=== PATIENT | female | born 1950 | race American Indian/Alaskan Native ===

== ENCOUNTER 2017-01-18 13:43 | Emergency (ER) | payer SELFPAY ==
--- NOTE | 2017-01-18 17:39 | XRay Report ---
FINAL REPORT EXAM: XR KNEE 3V RT HISTORY: fall TECHNIQUE: Right knee three views 3 images PRIORS: None. FINDINGS: Bone mineralization appears within normal limits. No acute fracture or subluxation is identified. Traction enthesophyte is seen arising from the proximal patella. No gross abnormality is seen in the soft tissues. No joint effusion is seen. IMPRESSION: 1. No acute osseous abnormality is identified.
--- NOTE | 2017-01-18 17:41 | XRay Report ---
FINAL REPORT EXAM: XR ELBOW 3 LT HISTORY: fall TECHNIQUE: Left elbow three views 3 images PRIORS: None. FINDINGS: Bone mineralization appears within normal limits. No acute fracture or subluxation is identified. Traction enthesophyte is seen arising from the proximal ulna. No gross abnormality is seen in the soft tissues. IMPRESSION: 1. No acute fracture is identified.If symptoms persist, consider repeat study in 10-14 days to assess for a currently radiographically occult fracture.
[2017-01-18] MEDS ORDERED: BOOSTRIX IM ONE (18:59)
--- NOTE | 2017-01-18 19:12 | Emergency Department Report ---
ED Fall HPI - General Chief Complaint: Fall Stated Complaint: R KNEE INJURY FROM FALL Time Seen by Provider: 01/18/17 18:44 Source: patient Mode of arrival: Ambulatory Limitations: Other (pt drowsy, poor historian ) - History of Present Illness Initial Comments: PT states she fell at home on Thursday. PT states she was walking outside and her shoes did not have traction. PT states that she slipped and her R knee bent backwards. PT states that she fell backwards and hit her head. PT states she passed out for a few seconds. PT states she hurt her R knee and L elbow. PT states she has chronic back pain from spinal stenosis and DDD. PT denies b/b incontinence. PT states she has not had her ambien to help her sleep and she was tossing and turning this am and she feel out of bed. PT states her family member helped get her up right away. PT states she does not have any of her pain medication. 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 ) Symptoms Prior to Fall: none Location: head, back Location - Extremities: Left: Elbow, Right: Knee Severity scale (0 -10): 10 Context: tripped/slipped Associated Symptoms: headache. denies: numbness, weakness, chest paint, shortness of breath, unable to walk, lightheaded - Related Data Home Medications Medication Instructions Recorded Confirmed Last Taken Carvedilol [Coreg] 25 mg PO BID 04/08/14 07/08/16 07/06/16 21:00 25 mg Lisinopril [Zestril TAB] 10 mg PO QDAY 04/08/14 07/08/16 07/07/16 21:00 10mg cloNIDine [Catapres] 0.2 mg PO QHS 04/08/14 07/08/16 07/07/16 21:00 0.2mg Zolpidem [Ambien] 10 mg PO QHS 05/06/16 07/08/16 07/07/16 21:00 Previous Rx's Medication Instructions Recorded Last Taken Type AtorvaSTATin [Lipitor] 20 mg PO QHS #30 tablet 05/08/16 07/06/16 21:00 Rx Ibuprofen [Motrin] 600 mg PO Q8H PRN #15 tablet 01/18/17 Unknown Rx Miscellaneous Medical Supply 1 each MC CONT #1 each 01/18/17 Unknown Rx [[place]] Nitrofurantoin Leake/M-Cryst 100 mg PO Q12HR #14 capsule 01/18/17 Unknown Rx [Macrobid CAP] methOCARBAMOL [Robaxin TAB] 500 mg PO Q6H PRN #15 tablet 01/18/17 Unknown Rx Allergies Allergy/AdvReac Type Severity Reaction Status Date / Time amitriptyline Allergy Rash Verified 05/06/16 06:00 levofloxacin [From Levaquin] Allergy Rash Verified 05/06/16 05:58 tramadol HCl [From Ultram] Allergy heart race Verified 12/26/15 09:52 ED Review of Systems ROS: Stated complaint: R KNEE INJURY FROM FALL Other details as noted in HPI Comment: All other systems reviewed and negative Constitutional: denies: fever, weakness Cardiovascular: denies: chest pain Gastrointestinal: denies: abdominal pain, nausea, vomiting Musculoskeletal: as per HPI, back pain Skin: other (abrasions to L elbow and R knee ) Neurological: other (loc after fall on Thursday ) ED Past Medical Hx - Past Medical History Previous Medical History?: Yes Hx Hypertension: Yes Hx CVA: No Hx Heart Attack/AMI: No Hx Congestive Heart Failure: No Hx Diabetes: No Hx Deep Vein Thrombosis: No Hx Pulmonary Embolism: No Hx GERD: No Hx Liver Disease: No Hx Renal Disease: No Hx Sickle Cell Disease: No Hx Arthritis: No Hx Headaches / Migraines: No Hx Seizures: No Hx Kidney Stones: No Hx Psychiatric Treatment: Yes (depression) Hx Asthma: No Hx COPD: No Hx Tuberculosis: No Hx Dementia: No Hx HIV: No Additional medical history: stenosis of spine - Surgical History Past Surgical History?: Yes Hx Coronary Stent: No Hx Open Heart Surgery: No Hx Pacemaker: No Hx Internal Defibrillator: No Hx Cholecystectomy: No Hx Appendectomy: No Hx Breast Surgery: No Additional Surgical History: neck-bulging disc. back fusion - Social History Smoking Status: Never Smoker Substance Use Type: Alcohol - Medications Home Medications: Home Medications Medication Instructions Recorded Confirmed Last Taken Type Carvedilol [Coreg] 25 mg PO BID 04/08/14 07/08/16 07/06/16 21:00 History 25 mg Lisinopril [Zestril TAB] 10 mg PO QDAY 04/08/14 07/08/16 07/07/16 21:00 History 10mg cloNIDine [Catapres] 0.2 mg PO QHS 04/08/14 07/08/16 07/07/16 21:00 History 0.2mg Zolpidem [Ambien] 10 mg PO QHS 05/06/16 07/08/16 07/07/16 21:00 History AtorvaSTATin [Lipitor] 20 mg PO QHS #30 tablet 05/08/16 07/08/16 07/06/16 21:00 Rx Ibuprofen [Motrin] 600 mg PO Q8H PRN #15 tablet 01/18/17 Unknown Rx Miscellaneous Medical Supply 1 each MC CONT #1 each 01/18/17 Unknown Rx [[place]] Nitrofurantoin Leake/M-Cryst 100 mg PO Q12HR #14 capsule 01/18/17 Unknown Rx [Macrobid CAP] methOCARBAMOL [Robaxin TAB] 500 mg PO Q6H PRN #15 tablet 01/18/17 Unknown Rx ED Physical Exam - General Limitations: No Limitations General appearance: alert, appears intoxicated (of heavily medicated ) - Head Head exam: Present: atraumatic, normocephalic, normal inspection - Eye Eye exam: Present: normal appearance, EOMI (pt has difficulty following commands / instructions- able to move eyes on her own ). Absent: conjunctival injection , nystagmus - ENT ENT exam: Present: normal exam, normal orophraynx, mucous membranes moist, TM's normal bilaterally, normal external ear exam - Neck Neck exam: Present: normal inspection, full ROM. Absent: tenderness - Respiratory Respiratory exam: Present: normal lung sounds bilaterally. Absent: respiratory distress - Cardiovascular Cardiovascular Exam: Present: regular rate, normal rhythm - GI/Abdominal GI/Abdominal exam: Present: soft. Absent: tenderness - Expanded Upper Extremity Exam Left Shoulder Exam: Present: normal inspection, full ROM Elbow exam: Present: tenderness, abrasion. Absent: dislocation, erythema - Expanded Lower Extremity Exam Right Knee exam: Present: full ROM, tenderness, abrasion Ankle exam: Present: normal inspection, full ROM. Absent: tenderness Neuro vascular tendon exam: Present: no vascular compromise Gait: Positive: observed and normal (after pt became more alert, gait evaluated ) - Back Exam Back exam: Present: normal inspection, full ROM, tenderness (R lower lumbar paraspinal tenderness ), paraspinal tenderness. Absent: CVA tenderness (R), CVA tenderness (L), vertebral tenderness - Neurological Exam Neurological exam: Present: alert, abnormal gait (due to R knee pain. ), other (slurred speech ) - Expanded Neurological Exam Expanded Patient oriented to: Present: person, place, time Cranial nerves: Tongue Deviation: Normal, Nystagmus: Normal Best Eye Response (Newborn): (4) open spontaneously Best Motor Response (Jah): (5) localizes to pain (pt very droswy, has difficulty following commands.) Best Verbal Response (Jah): (4) confused conversation Jah Total: 13 - Psychiatric Psychiatric exam: Present: normal affect, normal mood - Skin Skin exam: Present: warm, dry, abrasion. Absent: ecchymosis ED Course Vital Signs 01/18/17 01/18/17 14:30 23:35 Temperature 98.7 F 98.6 F Pulse Rate 107 H 95 H Respiratory 16 20 Rate Blood Pressure 159/106 Blood Pressure 155/98 [Left] O2 Sat by Pulse 100 99 Oximetry - Reevaluation(s) Reevaluation #1: 01/18/17 23:14 PT is much more awake and alert at this time. PT requests that family member at bedside not be told "what is in {her} urine" PT aware she will need to follow up with pcp for refills of narcotic pain medication and her ambien. PT verbalizes understanding. Reevaluation #2: 01/18/17 23:23 PT aware of lab results. PT states she has had intermittent dysuria and hematuria. PT aware culture pending, will treat for uti empirically - Pulse Oximetry Interpretation Digit-Finger Initial Pulse Oximetry Readin Actions Taken: none ED Medical Decision Making - Lab Data Result diagrams: 01/18/17 19:24 01/18/17 19:24 - Radiology Data CT head - NAP - Differential Diagnosis etoh use, drug abuse, narcotic use, fracture, contusion, abrasion Critical Care Time: No Critical care attestation.: If time is entered above; I have spent that time in minutes in the direct care of this critically ill patient, excluding procedure time. ED Disposition Clinical Impression: Closed head injury with brief loss of consciousness, Hematuria Fall Qualifiers: Encounter type: initial encounter Qualified Code(s): W19.XXXA - Unspecified fall, initial encounter Contusion of right knee Qualifiers: Encounter type: initial encounter Qualified Code(s): S80.01XA - Contusion of right knee, initial encounter Abrasion of left elbow, initial encounter Qualifiers: Encounter type: initial encounter Qualified Code(s): S50.312A - Abrasion of left elbow, initial encounter Disposition: DISCHARGED TO HOME OR SELFCARE Is pt being admited?: No Does the pt Need Aspirin: No Condition: Stable Instructions: Fall Prevention for Older Adults (ED), Acute Hematuria (ED), Elbow Sprain (ED), Abrasion (ED), Knee Pain (ED), Fall Prevention (ED) Additional Instructions: Follow up with your PCP for your sleeping and pain medication Prescriptions: Ibuprofen [Motrin] 600 mg PO Q8H PRN #15 tablet PRN Reason: Pain methOCARBAMOL [Robaxin TAB] 500 mg PO Q6H PRN #15 tablet PRN Reason: Muscle Spasm Miscellaneous Medical Supply [[place]] 1 each MC CONT #1 each Nitrofurantoin Leake/M-Cryst [Macrobid CAP] 100 mg PO Q12HR #14 capsule Referrals: PRIMARY CARE, [Primary Care Provider] - 3-5 Days Time of Disposition: 23:25
--- NOTE | 2017-01-18 19:37 | Cat Scan Report ---
FINAL REPORT EXAM: CT HEAD/BRAIN WO CON HISTORY: fall, chi, drowsy TECHNIQUE: Noncontrast serial axial images from skull base to vertex PRIORS: CT scan of the head from 05/05/2016 FINDINGS: There is no mass effect or midline shift. There are no abnormal intra or extra-axial fluid collections. Cortical sulci and lateral ventricles are within normal limits for size and configuration. Basilar cisterns are patent. No acute intracranial hemorrhage is identified. Visualized paranasal sinuses and mastoid air cells are well aerated. No acute osseous abnormality is identified. IMPRESSION: 1. No acute intracranial hemorrhage is identified.
[2017-01-18 19:48] LABS: Basophils % (Auto) 0.6 % (0.0-1.8); Eosinophils % (Auto) 1.4 % (0.0-4.3); Hematocrit 40.9 % (30.3-42.9); Hemoglobin 13.5 gm/dl (10.1-14.3); Mean Corpuscular HGB Conc 33 % (30-34); Mean Corpuscular Hemoglobin 30 pg (28-32); Mean Corpuscular Volume 92 fl (79-97); Platelet Count 242 K/mm3 (140-440); Red Blood Count 4.43 M/mm3 (3.65-5.03); Red Cell Distribution Width 14.7 % (13.2-15.2); White Blood Count 7.5 K/mm3 (4.5-11.0)
[2017-01-18 19:59] LABS: INR 0.98 (0.87-1.13)
[2017-01-18 20:00] LABS: Partial Thromboplastin Time 28.2 Sec. (24.2-36.6)
[2017-01-18 20:05] LABS: Alanine Aminotransferase 23 units/L (7-56); Albumin 4.3 g/dL (3.9-5); Albumin/Globulin Ratio 1.3 %; Anion Gap 20 mmol/L; BUN/Creatinine Ratio 13.75; Blood Urea Nitrogen 11 mg/dL (7-17); Calcium 9.7 mg/dL (8.4-10.2); Carbon Dioxide 24 mmol/L (22-30); Chloride 100.6 mmol/L (98-107); Glucose 98 mg/dL (65-100); Potassium 4.1 mmol/L (3.6-5.0); Sodium 140 mmol/L (137-145); Total Protein 7.7 g/dL (6.3-8.2)
[2017-01-18 21:15] LABS: Alkaline Phosphatase 208 units/L (35-129)
[2017-01-18 21:41] LABS: Urine Drugs of Abuse Note Disclamer
[2017-01-18 22:00] LABS: Bilirubin,Urine NEG (Negative); Blood,Urine SM (Negative); Ketones,Urine NEG (Negative); Leukocyte Esterase,Urine NEG (Negative); Mucus,Urine FEW /HPF; Nitrite,Urine NEG (Negative); Urobilinogen,Urine < 2.0 mg/dL (<2.0); WBC,Urine < 1.0 /HPF (0.0-6.0)
[2017-01-18 23:36] VITALS: BP 155/98
== END 2017-01-18 23:41 | disposition home or self-care (01) ==
LOC: ED 13:43
DX: S80.01XA Contusion of right knee, initial encounter (principal); S50.312A Abrasion of left elbow, initial encounter; S06.9X9A Unspecified intracranial injury with loss of consciousness of unspecified duration, initial encounter; R31.9 Hematuria, unspecified; I10 Essential (primary) hypertension; Z98.890 Other specified postprocedural states; Z88.1 Allergy status to other antibiotic agents; Z88.6 Allergy status to analgesic agent; Z88.8 Allergy status to other drugs, medicaments and biological substances; W01.10XA Fall on same level from slipping, tripping and stumbling with subsequent striking against unspecified object, initial encounter; Y93.01 Activity, walking, marching and hiking; Y99.8 Other external cause status; Y92.098 Other place in other non-institutional residence as the place of occurrence of the external cause
CPT/HCPCS: 36415; 70450; 73080; 73562; 80053; 80307; 81001; 85025; 85610; 85730; 87086; 90471; 90715; 99284; G0480; 80320

== ENCOUNTER 2017-06-03 11:56 | Emergency (ER) | payer MEDICARE, OTHER ==
[2017-06-03 13:54] LABS: Basophils % (Auto) 0.5 % (0.0-1.8); Eosinophils % (Auto) 0.1 % (0.0-4.3); Hematocrit 38.9 % (30.3-42.9); Hemoglobin 12.9 gm/dl (10.1-14.3); Mean Corpuscular HGB Conc 33 % (30-34); Mean Corpuscular Hemoglobin 31 pg (28-32); Mean Corpuscular Volume 92 fl (79-97); Platelet Count 305 K/mm3 (140-440); Red Blood Count 4.22 M/mm3 (3.65-5.03); Red Cell Distribution Width 14.9 % (13.2-15.2); White Blood Count 13.7 K/mm3 (4.5-11.0)
[2017-06-03 14:09] LABS: Anion Gap 21 mmol/L; BUN/Creatinine Ratio 24.28; Blood Urea Nitrogen 17 mg/dL (7-17); Calcium 9.4 mg/dL (8.4-10.2); Carbon Dioxide 20 mmol/L (22-30); Chloride 100.8 mmol/L (98-107); Glucose 104 mg/dL (65-100); Potassium 3.7 mmol/L (3.6-5.0); Sodium 138 mmol/L (137-145)
[2017-06-03 17:03] LABS: Bacteria,Urine 1+ /HPF (Negative); Bilirubin,Urine NEG (Negative); Blood,Urine SM (Negative); Ketones,Urine NEG (Negative); Leukocyte Esterase,Urine SM (Negative); Nitrite,Urine NEG (Negative); Urobilinogen,Urine < 2.0 mg/dL (<2.0)
[2017-06-03] MEDS ORDERED: ZOFRAN ODT PO ONE (23:55)
[2017-06-03] MEDS ORDERED: TORADOL IV ONE (23:55)
[2017-06-03] MEDS ORDERED: TYLENOL #3 PO ONE (23:55)
--- NOTE | 2017-06-03 23:56 | Emergency Department Report ---
ED General Adult HPI - General Chief complaint: Abdominal Pain Stated complaint: COLD,FLU LIKE SYMPTOMS Time Seen by Provider: 06/03/17 23:43 Source: patient, family, RN notes reviewed, old records reviewed Mode of arrival: Ambulatory Limitations: No Limitations - History of Present Illness Initial comments: This is a 66-year-old female, the patient is previously unknown to me. The patient's primary care doctor is Dr. Alhaji Luna. Patient has a past medical history of hypertension, depression, anxiety, spinal stenosis, "bulging disks." Patient also has a history of chronic pain, and chronic pain dependence. She does not have recurrent pain specialist. Patient presents to the ER complaining of cough, congestion, nasal congestion, mucus. She reports positive sick contacts and a granddaughter. She reports that she denies headache, chest pain, shortness of breath, abdominal pain, irritative/obstructive urinary symptoms. Patient reports that she was waiting in the ER "for too long ", and that her chronic back pain is acting up, and she is developed mild nausea and vomiting. Patient reports that this is consistent when her "back flares up." -: Gradual Location: mouth, back Severity scale (0 -10): 10 Quality: aching Consistency: constant Improves with: medication Worsens with: movement Associated Symptoms: cough, loss of appetite, nausea/vomiting, weakness - Related Data Home Medications Medication Instructions Recorded Confirmed Last Taken Carvedilol [Coreg] 25 mg PO BID 04/08/14 07/08/16 07/06/16 21:00 25 mg Lisinopril [Zestril TAB] 10 mg PO QDAY 04/08/14 07/08/16 07/07/16 21:00 10mg cloNIDine [Catapres] 0.2 mg PO QHS 04/08/14 07/08/16 07/07/16 21:00 0.2mg Zolpidem [Ambien] 10 mg PO QHS 05/06/16 07/08/16 07/07/16 21:00 Previous Rx's Medication Instructions Recorded Last Taken Type AtorvaSTATin [Lipitor] 20 mg PO QHS #30 tablet 05/08/16 07/06/16 21:00 Rx Ibuprofen [Motrin] 600 mg PO Q8H PRN #15 tablet 01/18/17 Unknown Rx Miscellaneous Medical Supply 1 each MC CONT #1 each 01/18/17 Unknown Rx [[place]] Nitrofurantoin [place]/M-Cryst 100 mg PO Q12HR #14 capsule 01/18/17 Unknown Rx [Macrobid CAP] methOCARBAMOL [Robaxin TAB] 500 mg PO Q6H PRN #15 tablet 01/18/17 Unknown Rx Acetaminophen [Tylenol Arthritis] 650 mg PO Q6HR PRN #30 tablet.er 06/04/17 Unknown Rx Albuterol Sulfate [Proair 90 mcg IH Q4HR PRN #2 aer.pow.ba 06/04/17 Unknown Rx Respiclick] Benzonatate [Tessalon Perles] 100 mg PO Q8HR PRN #30 capsule 06/04/17 Unknown Rx Fluticasone [Flonase] 1 spray NS QDAY #1 bottle 06/04/17 Unknown Rx Ibuprofen [Motrin] 600 mg PO Q8H PRN #30 tablet 06/04/17 Unknown Rx Ondansetron [Zofran Odt] 4 mg PO QID PRN #20 tab.rapdis 06/04/17 Unknown Rx Allergies Allergy/AdvReac Type Severity Reaction Status Date / Time amitriptyline Allergy Rash Verified 05/06/16 06:00 levofloxacin [From Levaquin] Allergy Rash Verified 05/06/16 05:58 tramadol HCl [From Ultram] Allergy heart race Verified 12/26/15 09:52 ED Review of Systems ROS: Stated complaint: COLD,FLU LIKE SYMPTOMS Other details as noted in HPI Constitutional: malaise, weakness ENT: congestion Respiratory: cough Cardiovascular: denies: chest pain Gastrointestinal: nausea Genitourinary: denies: dysuria Musculoskeletal: back pain, arthralgia, myalgia Neurological: weakness Psychiatric: anxiety ED Past Medical Hx - Past Medical History Hx Hypertension: Yes Hx CVA: No Hx Heart Attack/AMI: No Hx Congestive Heart Failure: No Hx Diabetes: No Hx Deep Vein Thrombosis: No Hx Pulmonary Embolism: No Hx GERD: No Hx Liver Disease: No Hx Renal Disease: No Hx Sickle Cell Disease: No Hx Arthritis: No Hx Headaches / Migraines: No Hx Seizures: No Hx Kidney Stones: No Hx Psychiatric Treatment: Yes (depression) Hx Asthma: No Hx COPD: No Hx Tuberculosis: No Hx Dementia: No Hx HIV: No Additional medical history: stenosis of spine - Surgical History Hx Coronary Stent: No Hx Open Heart Surgery: No Hx Pacemaker: No Hx Internal Defibrillator: No Hx Cholecystectomy: No Hx Appendectomy: No Hx Breast Surgery: No Additional Surgical History: neck-bulging disc. back fusion - Social History Smoking Status: Never Smoker Substance Use Type: Alcohol - Medications Home Medications: Home Medications Medication Instructions Recorded Confirmed Last Taken Type Carvedilol [Coreg] 25 mg PO BID 04/08/14 07/08/16 07/06/16 21:00 History 25 mg Lisinopril [Zestril TAB] 10 mg PO QDAY 04/08/14 07/08/16 07/07/16 21:00 History 10mg cloNIDine [Catapres] 0.2 mg PO QHS 04/08/14 07/08/16 07/07/16 21:00 History 0.2mg Zolpidem [Ambien] 10 mg PO QHS 05/06/16 07/08/16 07/07/16 21:00 History AtorvaSTATin [Lipitor] 20 mg PO QHS #30 tablet 05/08/16 07/08/16 07/06/16 21:00 Rx Ibuprofen [Motrin] 600 mg PO Q8H PRN #15 tablet 01/18/17 Unknown Rx Miscellaneous Medical Supply 1 each MC CONT #1 each 01/18/17 Unknown Rx [[place]] Nitrofurantoin Cowley/M-Cryst 100 mg PO Q12HR #14 capsule 01/18/17 Unknown Rx [Macrobid CAP] methOCARBAMOL [Robaxin TAB] 500 mg PO Q6H PRN #15 tablet 01/18/17 Unknown Rx Acetaminophen [Tylenol Arthritis] 650 mg PO Q6HR PRN #30 tablet.er 06/04/17 Unknown Rx Albuterol Sulfate [Proair 90 mcg IH Q4HR PRN #2 aer.pow.ba 06/04/17 Unknown Rx Respiclick] Benzonatate [Tessalon Perles] 100 mg PO Q8HR PRN #30 capsule 06/04/17 Unknown Rx Fluticasone [Flonase] 1 spray NS QDAY #1 bottle 06/04/17 Unknown Rx Ibuprofen [Motrin] 600 mg PO Q8H PRN #30 tablet 06/04/17 Unknown Rx Ondansetron [Zofran Odt] 4 mg PO QID PRN #20 tab.rapdis 06/04/17 Unknown Rx ED Physical Exam - General Limitations: No Limitations General appearance: alert, in no apparent distress - Head Head exam: Present: atraumatic, normocephalic - Eye Eye exam: Present: normal appearance, PERRL, EOMI. Absent: nystagmus - ENT ENT exam: Present: normal exam, mucous membranes moist, TM's normal bilaterally , normal external ear exam - Neck Neck exam: Present: normal inspection, full ROM. Absent: tenderness, meningismus - Respiratory Respiratory exam: Present: normal lung sounds bilaterally. Absent: respiratory distress, wheezes, rales, rhonchi, stridor, chest wall tenderness, accessory muscle use, decreased breath sounds, prolonged expiratory - Cardiovascular Cardiovascular Exam: Present: regular rate, normal rhythm, normal heart sounds. Absent: bradycardia, tachycardia, irregular rhythm, systolic murmur, diastolic murmur, rubs, gallop - GI/Abdominal GI/Abdominal exam: Present: soft, normal bowel sounds. Absent: distended, tenderness, guarding, rebound, rigid, pulsatile mass - Extremities Exam Extremities exam: Present: normal inspection, full ROM, normal capillary refill. Absent: pedal edema, joint swelling, calf tenderness - Back Exam Back exam: Present: normal inspection, full ROM, paraspinal tenderness. Absent : tenderness, CVA tenderness (R), vertebral tenderness - Neurological Exam Neurological exam: Present: alert, oriented X3, other (Extraocular movements intact. Tongue midline. No facial droop. Facial sensation intact to light touch in the V1, V2, V3 distribution bilaterally. 5 and 5 strength in 4 extremities.. Sensation is intact to light touch in 4 extremities.). Absent: motor sensory deficit - Psychiatric Psychiatric exam: Present: normal affect, normal mood - Skin Skin exam: Present: warm, dry, intact, normal color. Absent: rash ED Course Vital Signs 06/03/17 06/03/17 06/04/17 13:21 23:20 00:59 Temperature 98.8 F 98.6 F 98.0 F Pulse Rate 107 H 105 H 93 H Respiratory 16 16 16 Rate Blood Pressure 145/100 Blood Pressure 145/102 150/93 [Left] O2 Sat by Pulse 100 99 99 Oximetry ED Medical Decision Making - Lab Data Result diagrams: 06/03/17 13:38 06/03/17 13:38 - Radiology Data Radiology results: image reviewed interpreted by me: X-ray the chest is negative - Medical Decision Making Differential diagnosis: Pneumonia, bronchitis, viral syndrome, chronic pain Assessment and plan: 66-year-old female with probable viral syndrome. She is afebrile, with reassuring vital signs, tachycardia has resolved, she is able to tolerate liquid feeds. History and physical did not support the diagnosis of epidural compression syndrome, abdomen is soft and benign, with no rebound, guarding or peritoneal signs, she is able to tolerate liquid feeds, and feels improved with the pain medication. She will be discharged with instructions to follow up with primary care and pain specialist, return precautions are reviewed. Critical care attestation.: If time is entered above; I have spent that time in minutes in the direct care of this critically ill patient, excluding procedure time. ED Disposition Clinical Impression: Viral syndrome, Chronic back pain Disposition: - TO HOME OR SELFCARE Is pt being admited?: No Does the pt Need Aspirin: No Condition: Stable Instructions: Viral Syndrome (ED) Additional Instructions: Take the cough medication, breathing medication, nausea medication, pain medication as needed/directed. Follow-up with primary care doctor or pain specialist within the next month. Return to the ER right away with fevers, chills, lethargy, irritability, projectile vomiting, change in mental status, inability to tolerate liquid feeds, confusion. Prescriptions: Acetaminophen [Tylenol Arthritis] 650 mg PO Q6HR PRN #30 tablet.er PRN Reason: Pain Albuterol Sulfate [Proair Respiclick] 90 mcg IH Q4HR PRN #2 aer.pow.ba PRN Reason: Wheezing Benzonatate [Tessalon Perles] 100 mg PO Q8HR PRN #30 capsule PRN Reason: Cough Fluticasone [Flonase] 1 spray NS QDAY #1 bottle Ibuprofen [Motrin] 600 mg PO Q8H PRN #30 tablet PRN Reason: Pain Ondansetron [Zofran Odt] 4 mg PO QID PRN #20 tab.rapdis PRN Reason: Nausea Referrals: MARK LUNA MD [Primary Care Provider] - 3-5 Days DEDE TANG MD [Staff Physician] - 3-5 Days
[2017-06-04 01:03] VITALS: BP 150/93
--- NOTE | 2017-06-04 07:47 | XRay Report ---
ROUTINE CHEST, TWO VIEWS: HISTORY: Cough. The trachea, heart, mediastinal contour, lung christensen and bony thorax are unremarkable. IMPRESSION: Unremarkable chest x-ray.
== END 2017-06-04 02:00 | disposition home or self-care (01) ==
LOC: ED 11:56
DX: B34.9 Viral infection, unspecified (principal); M54.9 Dorsalgia, unspecified; G89.29 Other chronic pain; I10 Essential (primary) hypertension; Z88.1 Allergy status to other antibiotic agents; Z88.5 Allergy status to narcotic agent; Z88.8 Allergy status to other drugs, medicaments and biological substances
CPT/HCPCS: 36415; 71020; 80048; 81001; 85025; 96374; 99284; J1885; Q0162

== ENCOUNTER 2017-06-27 13:00 | Emergency (ER) | payer MEDICARE ==
--- NOTE | 2017-06-27 14:58 | Emergency Department Report ---
HPI - General Chief Complaint: Back Pain/Injury Time Seen by Provider: 06/27/17 14:29 - HPI HPI: Room 2 The pt is a 66 y/o F p/w a cc of Right back/RLE pain. The pt has a h/o Lumbar radiculopathy suffering from R foot numbness for 5-6 years. The pt states for the past 2-3 weeks she has had worsening pain. ^ days ago the pt had an episode of urinary incontinence and it repeated 3 days ago. The pt went to a clinic today and was sent to the ED for evaluation for possible cauda equina syndrome. ED Past Medical Hx - Past Medical History Previous Medical History?: Yes Hx Hypertension: Yes Hx Psychiatric Treatment: Yes (depression) Additional medical history: stenosis of spine, back pain, neck pain - Surgical History Past Surgical History?: Yes Additional Surgical History: neck-bulging disc. back fusion, hysterectomy - Family History Family history: no significant - Social History Smoking Status: Never Smoker Substance Use Type: Alcohol, Prescribed - Medications Home Medications: Home Medications Medication Instructions Recorded Confirmed Last Taken Type Carvedilol [Coreg] 25 mg PO BID 04/08/14 07/08/16 07/06/16 21:00 History 25 mg Lisinopril [Zestril TAB] 10 mg PO QDAY 04/08/14 07/08/16 07/07/16 21:00 History 10mg cloNIDine [Catapres] 0.2 mg PO QHS 04/08/14 07/08/16 07/07/16 21:00 History 0.2mg Zolpidem [Ambien] 10 mg PO QHS 05/06/16 07/08/16 07/07/16 21:00 History AtorvaSTATin [Lipitor] 20 mg PO QHS #30 tablet 05/08/16 07/08/16 07/06/16 21:00 Rx Ibuprofen [Motrin] 600 mg PO Q8H PRN #15 tablet 01/18/17 Unknown Rx Medical Supply, Miscellaneous 1 each MC CONT #1 each 01/18/17 Unknown Rx [[place]] Nitrofurantoin [place]/M-Cryst 100 mg PO Q12HR #14 capsule 01/18/17 Unknown Rx [Macrobid CAP] methOCARBAMOL [Robaxin TAB] 500 mg PO Q6H PRN #15 tablet 01/18/17 Unknown Rx Acetaminophen [Tylenol Arthritis] 650 mg PO Q6HR PRN #30 tablet.er 06/04/17 Unknown Rx Albuterol Sulfate [Proair 90 mcg IH Q4HR PRN #2 aer.pow.ba 06/04/17 Unknown Rx Respiclick] Benzonatate [Tessalon Perles] 100 mg PO Q8HR PRN #30 capsule 06/04/17 Unknown Rx Fluticasone [Flonase] 1 spray NS QDAY #1 bottle 06/04/17 Unknown Rx Ibuprofen [Motrin] 600 mg PO Q8H PRN #30 tablet 06/04/17 Unknown Rx Ondansetron [Zofran Odt] 4 mg PO QID PRN #20 tab.rapdis 06/04/17 Unknown Rx HYDROcodone/APAP 5-325 [[place] 1 - 2 each PO Q6HR PRN #14 tablet 06/27/17 Unknown Rx 5/325] Ibuprofen [Motrin 800 MG tab] 800 mg PO Q8HR PRN #20 tablet 06/27/17 Unknown Rx ED Review of Systems ROS: Stated complaint: BACK PAIN/URINE INCONTINENCE Other details as noted in HPI Comment: All other systems reviewed and negative Constitutional: denies: chills, fever Eyes: denies: eye pain, eye discharge, vision change Respiratory: denies: cough, shortness of breath, wheezing Cardiovascular: denies: chest pain, palpitations Endocrine: no symptoms reported Gastrointestinal: denies: abdominal pain, nausea, diarrhea Genitourinary: denies: urgency, dysuria, discharge Musculoskeletal: back pain Skin: denies: rash, lesions Neurological: paresthesias, other (bladder incontinence) Psychiatric: denies: anxiety, depression Hematological/Lymphatic: denies: easy bleeding, easy bruising Physical Exam - Physical Exam Vital Signs: Vital Signs 06/27/17 13:07 Temperature 98 F Pulse Rate 81 Respiratory 20 Rate Blood Pressure 183/112 O2 Sat by Pulse 100 Oximetry Physical Exam: GENERAL: The patient is well-developed well-nourished female lying on stretcher not appearing to be in acute distress. [] HEENT: Normocephalic. Atraumatic. Extraocular motions are intact. Patient has moist mucous membranes. NECK: Supple. Trachea midline CHEST/LUNGS: Clear to auscultation. There is no respiratory distress noted. HEART/CARDIOVASCULAR: Regular. There is tachycardia. There is no gallop rub or murmur. ABDOMEN: Abdomen is soft, nontender. Patient has normal bowel sounds. There is no abdominal distention. SKIN: There is no rash. There is no diaphoresis. NEURO: The patient is awake, alert, and oriented. The patient is cooperative. sl decreased sensation R ankle MUSCULOSKELETAL: There is no evidence of acute injury. no axial TTP ED Course Vital Signs 06/27/17 13:07 Temperature 98 F Pulse Rate 81 Respiratory 20 Rate Blood Pressure 183/112 O2 Sat by Pulse 100 Oximetry - Reevaluation(s) Reevaluation #1: 06/27/17 18:04 Patient's post void residual = 0ml. Will discharge patient home with follow with primary neurosurgeon - Consultations Consultation #1: 06/27/17 17:04 [facility] transfer line called 06/27/17 17:25 Case discussed with neurosurgery and Dr. Chaparro- recommends checking a postvoid residual. States that it is very sensitive for detecting cauda equina syndrome. States that if the postvoid residual is normal (less than 200 mls) the patient may be discharged home to follow up in his clinic telephone #. If the postvoid residual is elevated recommends calling back for potential transfer. Does not recommend diminishing steroids at this time ED Medical Decision Making - Radiology Data Radiology results: report reviewed (MRI lumbar spine), image reviewed (MRI L Spine) MRI lumbar spine (read by radiologist) sees-significant lower lumbar degenerative disc disease with protrusion/extrusion at L3/L4, L4/L5 and to a lesser degree L5/S1. There is also significant facet osteoarthritis less than 7 mm left posterior disc extrusion at L4/L5. - Differential Diagnosis lumbar radiculopathy, spinal cord compression Critical care attestation.: If time is entered above; I have spent that time in minutes in the direct care of this critically ill patient, excluding procedure time. ED Disposition Clinical Impression: Back pain, Lumbar radiculopathy Disposition: TO HOME OR SELFCARE Is pt being admited?: No Does the pt Need Aspirin: No Instructions: Lumbar Radiculopathy (ED) Additional Instructions: Return to the emergency department immediately should you develop worsening symptoms, fever, inability to tolerate food or liquid or any other concerns. Prescriptions: HYDROcodone/APAP 5-325 [[place] 5/325] 1 - 2 each PO Q6HR PRN #14 tablet PRN Reason: Pain Ibuprofen [Motrin 800 MG tab] 800 mg PO Q8HR PRN #20 tablet PRN Reason: Pain Referrals: Dr. Chaparro, [facility] [Other] - 06/29/17 Time of Disposition: 18:08
--- NOTE | 2017-06-27 16:47 | Magnetic Resonance Report ---
FINAL REPORT EXAM: MR LUMBAR SPINE WO CON HISTORY: right foot numbness, urinary incontinence TECHNIQUE: Multiplanar multisequence noncontrast MR imaging of the lumbosacral spine was performed. Comparison: None FINDINGS: There is mild straightening of the normal lumbar lordosis. There is loss of vertebral body height at L5. There is disc desiccation most severe at L3/L4 and L4/L5 with disc protrusions at these locations. Conus terminates normally at L1. Axial images were performed from T12 to the proximal sacrum. At T12/L1, no acute pathology. At L1/L2, no acute pathology. At L2/L3, mild broad-based bulge and facet osteoarthritis compounded by left paravertebral disc causes borderline canal stenosis and mild left foraminal stenosis. At L3/4, broad-based protrusion and significant facet osteoarthritis cause both transverse and AP canal stenosis to less than 8 millimeters. There is bilateral foraminal stenosis, left greater than right. At L4/5, there is significant disc protrusion with facet osteoarthritis obliterating the left lateral recess and displacing the left exiting nerve root. The canal is significantly narrowed with AP diameter measuring less than 5 millimeters. At this level, there appears to be a 7 millimeter posterior osteophyte contributing to the canal stenosis. At L5/S1, there is broad-based bulge, ligamentum flavum hypertrophy and facet osteoarthritis causing canal stenosis to 7.5 millimeters. There is bilateral foraminal stenosis and impingement of the descending nerve roots. There is a left upper pole renal cortical exophytic cyst. IMPRESSION: Significant lower lumbar degenerative disc disease with protrusion/extrusion at L3/L4, L4/L5 and to a lesser degree L5/S1. There is also significant facet osteoarthritis with less likely 7 millimeter left posterior disc extrusion at L4/L5. Recommend contrasted exam for further characterization. The lower most segmented vertebral body appears to represent L4 but it is difficult to count based on the counting series provided and may represent a transitional vertebral body.
[2017-06-27] MEDS ORDERED: ZOFRAN IM ONE (18:03)
[2017-06-27] MEDS ORDERED: MORPHINE IM ONE (18:03)
[2017-06-27 18:57] VITALS: BP 151/101
== END 2017-06-27 18:57 | disposition home or self-care (01) ==
LOC: ED 13:00
DX: M54.16 Radiculopathy, lumbar region (principal); I10 Essential (primary) hypertension; R32 Unspecified urinary incontinence
CPT/HCPCS: 72148; 96372; 99283; J2270; J2405

== ENCOUNTER 2017-08-07 16:27 | Emergency (ER) | payer MEDICARE ==
--- NOTE | 2017-08-07 19:37 | Emergency Department Report ---
ED Back Pain/Injury HPI - General Chief Complaint: Back Pain/Injury Stated Complaint: BACK PAIN Time Seen by Provider: 08/07/17 19:20 Source: patient, family Limitations: No Limitations - History of Present Illness Initial Comments: Patient here reports that she has chronic back pain and out of her pain medication which she usually takes hydrocodone. She says she sees a neurosurgeon at [facility] and she is scheduled to have surgery next month. She said her back pain is 10 out of 10 but denies any radiation. She said this back pain is different from the back pain that she has chronically. She denies any urinary burning frequency or urgency. Denies any nausea or vomiting. Denies any fever or chills. Patient says she has spinal stenosis. Pain is located to the lateral lower back and feels achy and sharp. She says she did not take anything for pain because she doesn't have any more pain medication. Nothing makes it better and worse with moving around. MD Complaint: back pain Onset/Timin -: days(s) Similar Symptoms Previously: Yes (but patient reports that it is different from her usual back pain) Place: home Radiation: none Severity: severe Severity scale (0 -10): 10 Quality: sharp, aching Consistency: constant Improves With: none, walking Worsens With: movement Context: other (chronic back pain) Associated Symptoms: difficulty walking (this is usual for patient she and placed with a cane). denies: confusion, weakness, chest pain, numbness, cough, difficulty urinating, diaphoresis, incontinence, fever/chills, constipation, headaches, abdominal pain, loss of appetite, malaise, nausea/vomiting, rash, seizure, shortness of breath, syncope Treatments Prior to Arrival: other (none) - Related Data Home Medications Medication Instructions Recorded Confirmed Last Taken Carvedilol [Coreg] 25 mg PO BID 04/08/14 07/08/16 07/06/16 21:00 25 mg Lisinopril [Zestril TAB] 10 mg PO QDAY 04/08/14 07/08/16 07/07/16 21:00 10mg cloNIDine [Catapres] 0.2 mg PO QHS 04/08/14 07/08/16 07/07/16 21:00 0.2mg Zolpidem [Ambien] 10 mg PO QHS 05/06/16 07/08/16 07/07/16 21:00 Previous Rx's Medication Instructions Recorded Last Taken Type AtorvaSTATin [Lipitor] 20 mg PO QHS #30 tablet 05/08/16 07/06/16 21:00 Rx Ibuprofen [Motrin] 600 mg PO Q8H PRN #15 tablet 01/18/17 Unknown Rx Medical Supply, Miscellaneous 1 each MC CONT #1 each 01/18/17 Unknown Rx [[place]] Nitrofurantoin [place]/M-Cryst 100 mg PO Q12HR #14 capsule 01/18/17 Unknown Rx [Macrobid CAP] methOCARBAMOL [Robaxin TAB] 500 mg PO Q6H PRN #15 tablet 01/18/17 Unknown Rx Acetaminophen [Tylenol Arthritis] 650 mg PO Q6HR PRN #30 tablet.er 06/04/17 Unknown Rx Albuterol Sulfate [Proair 90 mcg IH Q4HR PRN #2 aer.pow.ba 06/04/17 Unknown Rx Respiclick] Benzonatate [Tessalon Perles] 100 mg PO Q8HR PRN #30 capsule 06/04/17 Unknown Rx Fluticasone [Flonase] 1 spray NS QDAY #1 bottle 06/04/17 Unknown Rx Ibuprofen [Motrin] 600 mg PO Q8H PRN #30 tablet 06/04/17 Unknown Rx Ondansetron [Zofran Odt] 4 mg PO QID PRN #20 tab.rapdis 06/04/17 Unknown Rx HYDROcodone/APAP 5-325 [[place] 1 - 2 each PO Q6HR PRN #14 tablet 06/27/17 Unknown Rx 5/325] Ibuprofen [Motrin 800 MG tab] 800 mg PO Q8HR PRN #20 tablet 06/27/17 Unknown Rx Sulfamethoxazole/Trimethoprim 1 each PO BID 10 Days #20 tablet 08/07/17 Unknown Rx [Bactrim DS TAB] diphenhydrAMINE [Benadryl CAP] 25 mg PO Q6HR PRN 5 Days #20 08/07/17 Unknown Rx capsule traMADol [Ultram] 50 mg PO Q6HR PRN 5 Days #20 tablet 08/07/17 Unknown Rx Allergies Allergy/AdvReac Type Severity Reaction Status Date / Time amitriptyline Allergy Rash Verified 05/06/16 06:00 levofloxacin [From Levaquin] Allergy Rash Verified 05/06/16 05:58 tramadol HCl [From Ultram] Allergy heart race Verified 12/26/15 09:52 ED Review of Systems ROS: Stated complaint: BACK PAIN Other details as noted in HPI Comment: All other systems reviewed and negative Constitutional: no symptoms reported Respiratory: no symptoms reported Cardiovascular: denies: chest pain, palpitations, dyspnea on exertion, edema, syncope Gastrointestinal: denies: abdominal pain, nausea, vomiting, diarrhea, constipation, hematemesis, hematochezia Genitourinary: denies: urgency, dysuria, frequency, hematuria, discharge Musculoskeletal: back pain. denies: joint swelling, arthralgia, myalgia Skin: denies: rash Neurological: abnormal gait (abnormal gait which is chronic). denies: headache , weakness, numbness, paresthesias, confusion ED Past Medical Hx - Past Medical History Previous Medical History?: Yes Hx Hypertension: Yes Hx CVA: No Hx Heart Attack/AMI: No Hx Congestive Heart Failure: No Hx Diabetes: No Hx Deep Vein Thrombosis: No Hx Pulmonary Embolism: No Hx GERD: No Hx Liver Disease: No Hx Renal Disease: No Hx Sickle Cell Disease: No Hx Arthritis: No Hx Headaches / Migraines: No Hx Seizures: No Hx Kidney Stones: No Hx Psychiatric Treatment: Yes (depression) Hx Asthma: No Hx COPD: No Hx Tuberculosis: No Hx Dementia: No Hx HIV: No Additional medical history: stenosis of spine, back pain, neck pain - Surgical History Past Surgical History?: Yes Hx Coronary Stent: No Hx Open Heart Surgery: No Hx Pacemaker: No Hx Internal Defibrillator: No Hx Cholecystectomy: No Hx Appendectomy: No Hx Breast Surgery: No Additional Surgical History: neck-bulging disc. back fusion, hysterectomy - Family History Family history: hypertension - Social History Smoking Status: Never Smoker Substance Use Type: None - Medications Home Medications: Home Medications Medication Instructions Recorded Confirmed Last Taken Type Carvedilol [Coreg] 25 mg PO BID 04/08/14 07/08/16 07/06/16 21:00 History 25 mg Lisinopril [Zestril TAB] 10 mg PO QDAY 04/08/14 07/08/16 07/07/16 21:00 History 10mg cloNIDine [Catapres] 0.2 mg PO QHS 04/08/14 07/08/16 07/07/16 21:00 History 0.2mg Zolpidem [Ambien] 10 mg PO QHS 05/06/16 07/08/16 07/07/16 21:00 History AtorvaSTATin [Lipitor] 20 mg PO QHS #30 tablet 05/08/16 07/08/16 07/06/16 21:00 Rx Ibuprofen [Motrin] 600 mg PO Q8H PRN #15 tablet 01/18/17 Unknown Rx Medical Supply, Miscellaneous 1 each MC CONT #1 each 01/18/17 Unknown Rx [[place]] Nitrofurantoin [place]/M-Cryst 100 mg PO Q12HR #14 capsule 01/18/17 Unknown Rx [Macrobid CAP] methOCARBAMOL [Robaxin TAB] 500 mg PO Q6H PRN #15 tablet 01/18/17 Unknown Rx Acetaminophen [Tylenol Arthritis] 650 mg PO Q6HR PRN #30 tablet.er 06/04/17 Unknown Rx Albuterol Sulfate [Proair 90 mcg IH Q4HR PRN #2 aer.pow.ba 06/04/17 Unknown Rx Respiclick] Benzonatate [Tessalon Perles] 100 mg PO Q8HR PRN #30 capsule 06/04/17 Unknown Rx Fluticasone [Flonase] 1 spray NS QDAY #1 bottle 06/04/17 Unknown Rx Ibuprofen [Motrin] 600 mg PO Q8H PRN #30 tablet 06/04/17 Unknown Rx Ondansetron [Zofran Odt] 4 mg PO QID PRN #20 tab.rapdis 06/04/17 Unknown Rx HYDROcodone/APAP 5-325 [[place] 1 - 2 each PO Q6HR PRN #14 tablet 06/27/17 Unknown Rx 5/325] Ibuprofen [Motrin 800 MG tab] 800 mg PO Q8HR PRN #20 tablet 06/27/17 Unknown Rx Sulfamethoxazole/Trimethoprim 1 each PO BID 10 Days #20 tablet 08/07/17 Unknown Rx [Bactrim DS TAB] diphenhydrAMINE [Benadryl CAP] 25 mg PO Q6HR PRN 5 Days #20 08/07/17 Unknown Rx capsule traMADol [Ultram] 50 mg PO Q6HR PRN 5 Days #20 tablet 08/07/17 Unknown Rx ED Physical Exam - General Limitations: No Limitations General appearance: alert, in no apparent distress - Head Head exam: Present: atraumatic, normocephalic, normal inspection - Eye Eye exam: Present: normal appearance, PERRL, EOMI Pupils: Present: normal accommodation - ENT ENT exam: Present: normal exam, normal orophraynx, mucous membranes moist - Neck Neck exam: Present: normal inspection, full ROM, other (no C-spine tenderness). Absent: tenderness, meningismus, lymphadenopathy, thyromegaly - Respiratory Respiratory exam: Present: normal lung sounds bilaterally. Absent: respiratory distress, chest wall tenderness, accessory muscle use - Cardiovascular Cardiovascular Exam: Present: regular rate, normal rhythm, normal heart sounds. Absent: systolic murmur, diastolic murmur - GI/Abdominal GI/Abdominal exam: Present: soft, normal bowel sounds. Absent: distended, tenderness, guarding, rebound, rigid, organomegaly, mass, bruit, pulsatile mass - Extremities Exam Extremities exam: Present: normal inspection, full ROM, normal capillary refill , other (no clubbing, cyanosis or edema. Neurovascular intact. +2 pulses in all extremities.). Absent: tenderness, pedal edema, joint swelling, calf tenderness - Back Exam Back exam: Present: normal inspection, full ROM, other (patient ambulates with a cane). Absent: tenderness, CVA tenderness (R), CVA tenderness (L), muscle spasm, paraspinal tenderness, vertebral tenderness, rash noted - Expanded Back Exam Expanded Back exam: Absent: saddle anesthesia Back exam: Negative Straight Leg Raising: Left, Right - Neurological Exam Neurological exam: Present: alert, oriented X3, abnormal gait (ambulates with a pain and has abnormal gait which is chronic due to chronic back pain), motor sensory deficit (decreased motor function to lower extremities due to chronic back pain. Patient ambulates with a cane. She has no sensory deficit), reflexes normal - Expanded Neurological Exam Expanded Neurological exam: Absent: innattentive, ataxia, receptive aphasia, expressive aphasia, total aphasia, tremor, protecting the airway Patient oriented to: Present: person, place, time Speech: Present: fluid speech Cranial nerves: EOM's Intact: Normal, Gag Reflex: Normal, Tongue Deviation: Normal, Nystagmus: Normal, Facial Sensation: Normal Cerebellar function: Finger to Nose: Normal, Romberg: Abnormal Right, Abnormal Left (patient unsteady on feet due to chronic back pain) Upper motor neuron: Sensory Extinction: Normal Sensory exam: Upper Extremity Light Touch: Normal, Upper Extremity Temperature: Normal, UE 2 Point Discrimination: Normal, Lower Extremity Light Touch: Normal, Lower Extremity Temperature: Normal, LE 2 Point Discrimination: Normal Motor strength exam: RUE: 5, LUE: 5, RLE: 5, LLE: 5 DTR: bicep (R): 2+, bicep (L): 2+, tricep (R): 2+, tricep (L): 2+, knee (R): 2+ , knee (L): 2+, ankle (R): 2+, ankle (L): 2+ Best Eye Response ([place]): (4) open spontaneously Best Motor Response ([place]): (6) obeys commands Best Verbal Response ([place]): (5) oriented Jah Total: 15 - Psychiatric Psychiatric exam: Present: normal affect, normal mood - Skin Skin exam: Present: warm, dry, intact, normal color. Absent: rash ED Course Vital Signs 08/07/17 08/07/17 16:30 19:56 Temperature 98 F Pulse Rate 94 H Respiratory 20 18 Rate Blood Pressure 137/86 O2 Sat by Pulse 100 Oximetry - Reevaluation(s) Reevaluation #1: 08/07/17 20:56 Patient given Dilaudid 1 mg IM, Toradol 30 mg IM, Zofran 4 mg by mouth, Valium 5 mg by mouth which relieved her pain. She is not having itching in therefore I gave her Benadryl 50 mg by mouth and she received Rocephin 1 g IM for urinary tract infection. Patient is much better and she says she feels a lot better. Patient said that she taken tramadol in the past and it made her itch so thus why she puts it as itching but her pain medicine also makes her itch. I told her that I cannot prescribe anything else but tramadol and I told her that I'll prescribe Benadryl as needed to take which tramadol to prevent itching 08/07/17 20:57 ED Medical Decision Making - Lab Data Lab Results 08/07/17 Range/Units 19:28 Urine Color Yellow (Yellow) Urine Turbidity Clear (Clear) Urine pH 5.0 (5.0-7.0) Ur Specific [place] 1.014 (1.003-1.030) Urine Protein <15 mg/dl (Negative) mg/dL Urine Glucose (UA) Neg (Negative) mg/dL Urine Ketones Neg (Negative) mg/dL Urine Blood Sm (Negative) Urine Nitrite Neg (Negative) Urine Bilirubin Neg (Negative) Urine Urobilinogen < 2.0 (<2.0) mg/dL Ur Leukocyte Esterase Lg (Negative) Urine WBC (Auto) 77.0 H (0.0-6.0) /HPF Urine RBC (Auto) 8.0 (0.0-6.0) /HPF U Epithel Cells (Auto) < 1.0 (0-13.0) /HPF Urine Bacteria (Auto) 2+ (Negative) /HPF Urine Mucus Few /HPF Urine culture pending - Medical Decision Making ED course: A 67-year-old female well-nourished well-developed and appears to be in distress from lower back pain. Physical findings with abnormal gait which is chronic. No vertebral or C-spine tenderness. No paraspinal tenderness. Urinalysis revealed patient with 2+ bacteria, 77 white blood cell and a large leukocyte Estrace with small amount of blood. Patient will urinary tract infection. I discussed with patient urinalysis results and cultures ordered. Patient was given Valium 5 mg by mouth, Toradol 30 mg IM, Dilaudid 1 mg IM, Zofran 4 mg ODT for pain and prevention of nausea. Patient reports that she was a itching and she was given Benadryl 50 mg by mouth. Patient said her pain is much better and is now 2 out of 10. Patient given Rocephin 1 g IM in the emergency room for urinary tract infection. Patient does have a primary care physician's I told her she will need to follow up in 3 days. Discussed with her that her urine culture will be back in 3-5 days and she will be called if medication needs to be changed. Patient is allergic to Levaquin therefore she was given Bactrim DS prescription. Patient does not have any clinical findings or signs for pyelonephritis and she is allergic to Levaquin and since she is elderly. The possibility that it is early pyelonephritis therefore she was given Bactrim instead of Macrobid because Macrobid is not effective and pyelonephritis. Patient has no fever, no chills, no nausea or vomiting, no flank pain and no CVA tenderness. Patient able to tolerate oral liquids without any nausea. Tramadol, Benadryl. I discussed the patient that she should take Benadryl which tramadol to avoid itching. Discharged home with her family in stable condition. Critical care attestation.: If time is entered above; I have spent that time in minutes in the direct care of this critically ill patient, excluding procedure time. ED Disposition Clinical Impression: Acute cystitis with hematuria, Acute exacerbation of chronic low back pain Disposition: DC- TO HOME OR SELFCARE Is pt being admited?: No Does the pt Need Aspirin: No Condition: Stable Instructions: Urinary Tract Infection in Women (ED), Chronic Back Pain (ED) Additional Instructions: Please increase her fluid intake Her urinalysis shows that he had a urinary tract infection and year going to need to drink at least 2-3 L of water and cranberry juice per day to flush her bladder out. Take tramadol for pain and take Benadryl with this medication to prevent itching. Please do not drive or operate heavy machinery while taking and these medication is the cause drowsiness Follow up with primary care physician on 08/10/2017 for follow-up urinary tract infection Follow-up with your neurosurgeon for chronic back pain management If you develop fever, nausea and vomiting, increasing back pain, angelika blood in your urine, disorientation, increasing pain please return to the emergency room [place] otherwise follow up with primary care physician Prescriptions: diphenhydrAMINE [Benadryl CAP] 25 mg PO Q6HR PRN 5 Days #20 capsule PRN Reason: Itching Sulfamethoxazole/Trimethoprim [Bactrim DS TAB] 1 each PO BID 10 Days #20 tablet traMADol [Ultram] 50 mg PO Q6HR PRN 5 Days #20 tablet PRN Reason: Pain Referrals: PRIMARY CARE,MD [Primary Care Provider] - 08/10/17 Your, Neurosurgeon [Other] - 08/10/17 (For pain management) Forms: Work/School Release Form(ED), Accompanied Note
[2017-08-07] MEDS ORDERED: ZOFRAN ODT PO ONE (19:38)
[2017-08-07] MEDS ORDERED: VALIUM PO ONE (19:38)
[2017-08-07] MEDS ORDERED: DILAUDID IM ONE (19:38)
[2017-08-07] MEDS ORDERED: TORADOL IM ONE (19:38)
[2017-08-07 20:34] LABS: Bacteria,Urine 2+ /HPF (Negative); Bilirubin,Urine NEG (Negative); Blood,Urine SM (Negative); Ketones,Urine NEG (Negative); Leukocyte Esterase,Urine LG (Negative); Mucus,Urine FEW /HPF; Nitrite,Urine NEG (Negative); Protein,Urine <15 mg/dL mg/dL (Negative); Urobilinogen,Urine < 2.0 mg/dL (<2.0)
[2017-08-07] MEDS ORDERED: ROCEPHIN IM STA (20:45)
[2017-08-07] MEDS ORDERED: XYLOCAINE 1% MPF 5 mL INFILTRATI ONE (20:46)
[2017-08-07] MEDS ORDERED: BENADRYL PO ONE (20:46)
[2017-08-07 21:27] VITALS: BP 143/95
== END 2017-08-07 21:26 | disposition home or self-care (01) ==
LOC: ED 16:27
DX: M54.5 Low back pain (principal); G89.29 Other chronic pain; N30.01 Acute cystitis with hematuria; I10 Essential (primary) hypertension; Z88.6 Allergy status to analgesic agent
CPT/HCPCS: 81001; 87086; 96372; 99283; J0696; J1170; J1885; Q0162

== ENCOUNTER 2017-08-30 07:06 | Emergency (ER) | payer MEDICARE ==
[2017-08-30 07:41] VITALS: BP 152/98
--- NOTE | 2017-08-30 07:45 | Emergency Department Report ---
ED General Adult HPI - General Chief complaint: Urogenital-Female Stated complaint: BLEEDING AROUND CATHETER Time Seen by Provider: 08/30/17 07:34 Source: patient, EMS Mode of arrival: Stretcher Limitations: No Limitations - History of Present Illness Initial comments: Patient is 67 years old female with recent lumbar surgery at [facility] on August 20 , presented to the ER with a chief complaint of blood in her [place] catheter and she also complain of chills. Patient stated that the catheter is being there since surgery. Patient denied any other symptoms. - Related Data Home Medications Medication Instructions Recorded Confirmed Last Taken Carvedilol [Coreg] 25 mg PO BID 04/08/14 07/08/16 07/06/16 21:00 25 mg Lisinopril [Zestril TAB] 10 mg PO QDAY 04/08/14 07/08/16 07/07/16 21:00 10mg cloNIDine [Catapres] 0.2 mg PO QHS 04/08/14 07/08/16 07/07/16 21:00 0.2mg Zolpidem [Ambien] 10 mg PO QHS 05/06/16 07/08/16 07/07/16 21:00 Previous Rx's Medication Instructions Recorded Last Taken Type AtorvaSTATin [Lipitor] 20 mg PO QHS #30 tablet 05/08/16 07/06/16 21:00 Rx Ibuprofen [Motrin] 600 mg PO Q8H PRN #15 tablet 01/18/17 Unknown Rx Medical Supply, Miscellaneous 1 each MC CONT #1 each 01/18/17 Unknown Rx [[place]] Nitrofurantoin [place]/M-Cryst 100 mg PO Q12HR #14 capsule 01/18/17 Unknown Rx [Macrobid CAP] methOCARBAMOL [Robaxin TAB] 500 mg PO Q6H PRN #15 tablet 01/18/17 Unknown Rx Acetaminophen [Tylenol Arthritis] 650 mg PO Q6HR PRN #30 tablet.er 06/04/17 Unknown Rx Albuterol Sulfate [Proair 90 mcg IH Q4HR PRN #2 aer.pow.ba 06/04/17 Unknown Rx Respiclick] Benzonatate [Tessalon Perles] 100 mg PO Q8HR PRN #30 capsule 06/04/17 Unknown Rx Fluticasone [Flonase] 1 spray NS QDAY #1 bottle 06/04/17 Unknown Rx Ibuprofen [Motrin] 600 mg PO Q8H PRN #30 tablet 06/04/17 Unknown Rx Ondansetron [Zofran Odt] 4 mg PO QID PRN #20 tab.rapdis 06/04/17 Unknown Rx HYDROcodone/APAP 5-325 [[place] 1 - 2 each PO Q6HR PRN #14 tablet 06/27/17 Unknown Rx 5/325] Ibuprofen [Motrin 800 MG tab] 800 mg PO Q8HR PRN #20 tablet 06/27/17 Unknown Rx Sulfamethoxazole/Trimethoprim 1 each PO BID 10 Days #20 tablet 08/07/17 Unknown Rx [Bactrim DS TAB] diphenhydrAMINE [Benadryl CAP] 25 mg PO Q6HR PRN 5 Days #20 08/07/17 Unknown Rx capsule traMADol [Ultram] 50 mg PO Q6HR PRN 5 Days #20 tablet 08/07/17 Unknown Rx Allergies Allergy/AdvReac Type Severity Reaction Status Date / Time amitriptyline Allergy Rash Verified 05/06/16 06:00 levofloxacin [From Levaquin] Allergy Rash Verified 05/06/16 05:58 tramadol HCl [From Ultram] Allergy heart race Verified 12/26/15 09:52 ED Review of Systems ROS: Stated complaint: BLEEDING AROUND CATHETER Other details as noted in HPI Comment: All other systems reviewed and negative Constitutional: chills. denies: fever Respiratory: denies: cough, orthopnea, shortness of breath, SOB with exertion, SOB at rest, wheezing Cardiovascular: denies: chest pain, palpitations, dyspnea on exertion, orthopnea , edema, syncope, paroxysmal nocturnal dyspnea Gastrointestinal: denies: abdominal pain, nausea, vomiting, diarrhea, constipation, hematemesis, melena, hematochezia Genitourinary: hematuria Musculoskeletal: back pain (no change). denies: joint swelling, arthralgia Skin: denies: rash, lesions, change in color, change in hair/nails Neurological: denies: headache, weakness, numbness, paresthesias, confusion, abnormal gait ED Past Medical Hx - Past Medical History Hx Hypertension: Yes Hx CVA: No Hx Heart Attack/AMI: No Hx Congestive Heart Failure: No Hx Diabetes: No Hx Deep Vein Thrombosis: No Hx Pulmonary Embolism: No Hx GERD: No Hx Liver Disease: No Hx Renal Disease: No Hx Sickle Cell Disease: No Hx Arthritis: No Hx Headaches / Migraines: No Hx Seizures: No Hx Kidney Stones: No Hx Psychiatric Treatment: Yes (depression) Hx Asthma: No Hx COPD: No Hx Tuberculosis: No Hx Dementia: No Hx HIV: No Additional medical history: stenosis of spine, back pain, neck pain - Surgical History Hx Coronary Stent: No Hx Open Heart Surgery: No Hx Pacemaker: No Hx Internal Defibrillator: No Hx Cholecystectomy: No Hx Appendectomy: No Hx Breast Surgery: No Additional Surgical History: neck-bulging disc. back fusion, hysterectomy - Social History Smoking Status: Never Smoker Substance Use Type: None - Medications Home Medications: Home Medications Medication Instructions Recorded Confirmed Last Taken Type Carvedilol [Coreg] 25 mg PO BID 04/08/14 07/08/16 07/06/16 21:00 History 25 mg Lisinopril [Zestril TAB] 10 mg PO QDAY 04/08/14 07/08/16 07/07/16 21:00 History 10mg cloNIDine [Catapres] 0.2 mg PO QHS 04/08/14 07/08/16 07/07/16 21:00 History 0.2mg Zolpidem [Ambien] 10 mg PO QHS 05/06/16 07/08/16 07/07/16 21:00 History AtorvaSTATin [Lipitor] 20 mg PO QHS #30 tablet 05/08/16 07/08/16 07/06/16 21:00 Rx Ibuprofen [Motrin] 600 mg PO Q8H PRN #15 tablet 01/18/17 Unknown Rx Medical Supply, Miscellaneous 1 each MC CONT #1 each 01/18/17 Unknown Rx [[place]] Nitrofurantoin [place]/M-Cryst 100 mg PO Q12HR #14 capsule 01/18/17 Unknown Rx [Macrobid CAP] methOCARBAMOL [Robaxin TAB] 500 mg PO Q6H PRN #15 tablet 01/18/17 Unknown Rx Acetaminophen [Tylenol Arthritis] 650 mg PO Q6HR PRN #30 tablet.er 06/04/17 Unknown Rx Albuterol Sulfate [Proair 90 mcg IH Q4HR PRN #2 aer.pow.ba 06/04/17 Unknown Rx Respiclick] Benzonatate [Tessalon Perles] 100 mg PO Q8HR PRN #30 capsule 06/04/17 Unknown Rx Fluticasone [Flonase] 1 spray NS QDAY #1 bottle 06/04/17 Unknown Rx Ibuprofen [Motrin] 600 mg PO Q8H PRN #30 tablet 06/04/17 Unknown Rx Ondansetron [Zofran Odt] 4 mg PO QID PRN #20 tab.rapdis 06/04/17 Unknown Rx HYDROcodone/APAP 5-325 [[place] 1 - 2 each PO Q6HR PRN #14 tablet 06/27/17 Unknown Rx 5/325] Ibuprofen [Motrin 800 MG tab] 800 mg PO Q8HR PRN #20 tablet 06/27/17 Unknown Rx Sulfamethoxazole/Trimethoprim 1 each PO BID 10 Days #20 tablet 08/07/17 Unknown Rx [Bactrim DS TAB] diphenhydrAMINE [Benadryl CAP] 25 mg PO Q6HR PRN 5 Days #20 08/07/17 Unknown Rx capsule traMADol [Ultram] 50 mg PO Q6HR PRN 5 Days #20 tablet 08/07/17 Unknown Rx ED Physical Exam - General Limitations: No Limitations General appearance: alert, in no apparent distress - Head Head exam: Present: atraumatic, normocephalic, normal inspection - Eye Eye exam: Present: normal appearance, PERRL - ENT ENT exam: Present: normal exam, normal orophraynx, mucous membranes moist - Neck Neck exam: Present: normal inspection, full ROM. Absent: tenderness, meningismus - Respiratory Respiratory exam: Present: normal lung sounds bilaterally. Absent: respiratory distress, wheezes, rales, rhonchi, chest wall tenderness, accessory muscle use, decreased breath sounds, prolonged expiratory - Cardiovascular Cardiovascular Exam: Present: regular rate, normal rhythm, normal heart sounds - GI/Abdominal GI/Abdominal exam: Present: soft, normal bowel sounds. Absent: distended, tenderness, guarding, rebound, rigid, organomegaly, mass, bruit, pulsatile mass , hernia - Extremities Exam Extremities exam: Present: normal inspection, full ROM, normal capillary refill. Absent: tenderness, pedal edema, calf tenderness - Back Exam Back exam: Absent: tenderness, CVA tenderness (R), CVA tenderness (L), paraspinal tenderness, vertebral tenderness - Neurological Exam Neurological exam: Present: alert, oriented X3, CN II-XII intact - Skin Skin exam: Present: warm, intact, normal color. Absent: cyanosis, diaphoretic, erythema ED Course Vital Signs 08/30/17 07:40 Temperature 98.2 F Pulse Rate 100 H Respiratory 18 Rate Blood Pressure 152/98 [Left] O2 Sat by Pulse 100 Oximetry - Reevaluation(s) Reevaluation #1: 08/30/17 10:31 Patient ambulated well to the bathroom able to urinate is no difficulty. No blood noticed. Patient denied any nausea or vomiting. ED Medical Decision Making - Lab Data Result diagrams: 08/30/17 07:44 08/30/17 07:44 Critical care attestation.: If time is entered above; I have spent that time in minutes in the direct care of this critically ill patient, excluding procedure time. ED Disposition Clinical Impression: UTI (urinary tract infection), Cordova catheter in place prior to arrival Disposition: DC-01 TO HOME OR SELFCARE Is pt being admited?: No Condition: Stable Instructions: Urinary Tract Infection in Women (ED)
[2017-08-30 07:56] LABS: Hematocrit 33.1 % (30.3-42.9); Hemoglobin 11.5 gm/dl (10.1-14.3); Mean Corpuscular HGB Conc 35 % (30-34); Mean Corpuscular Hemoglobin 33 pg (28-32); Mean Corpuscular Volume 94 fl (79-97); Platelet Count 523 K/mm3 (140-440); Red Blood Count 3.54 M/mm3 (3.65-5.03); Red Cell Distribution Width 13.9 % (13.2-15.2); White Blood Count 12.5 K/mm3 (4.5-11.0)
[2017-08-30 08:20] LABS: Albumin 3.9 g/dL (3.9-5); Alkaline Phosphatase 111 units/L (35-129); BUN/Creatinine Ratio 29; Blood Urea Nitrogen 20 mg/dL (7-17); Calcium 9.7 mg/dL (8.4-10.2); Carbon Dioxide 24 mmol/L (22-30); Chloride 97.6 mmol/L (98-107); Glucose 97 mg/dL (65-100); Sodium 136 mmol/L (137-145); Total Protein 7.8 g/dL (6.3-8.2)
[2017-08-30 08:48] LABS: Bacteria,Urine 1+ /HPF (Negative); Bilirubin,Urine NEG (Negative); Blood,Urine SM (Negative); Ketones,Urine NEG (Negative); Leukocyte Esterase,Urine LG (Negative); Mucus,Urine FEW /HPF; Nitrite,Urine POS (Negative); Urobilinogen,Urine < 2.0 mg/dL (<2.0)
[2017-08-30] MEDS ORDERED: XYLOCAINE 1% MPF 5 mL INFILTRATI ONE (08:59)
[2017-08-30] MEDS ORDERED: ROCEPHIN IM ONE (08:59)
[2017-08-30 09:38] LABS: Anion Gap 19 mmol/L
[2017-08-30 09:39] LABS: Alanine Aminotransferase 17 units/L (7-56); Potassium 4.1 mmol/L (3.6-5.0)
[2017-08-30 10:40] LABS: Anisocytosis 1+; Blastocytes % (Manual) 0 %; Diff Status Complete; Platelet Estimate Consistent w Auto
== END 2017-08-30 10:54 | disposition home or self-care (01) ==
LOC: ED 07:06
DX: T83.098A Other mechanical complication of other urinary catheter, initial encounter (principal); I10 Essential (primary) hypertension; F32.9 Major depressive disorder, single episode, unspecified; Z90.710 Acquired absence of both cervix and uterus; Z88.1 Allergy status to other antibiotic agents; Z88.8 Allergy status to other drugs, medicaments and biological substances; Y84.6 Urinary catheterization as the cause of abnormal reaction of the patient, or of later complication, without mention of misadventure at the time of the procedure; Y92.89 Other specified places as the place of occurrence of the external cause
CPT/HCPCS: 36415; 80053; 81001; 85007; 85025; 96372; 99284; J0696

== ENCOUNTER 2018-01-10 12:36 | Emergency (ER) | payer MEDICARE ==
[2018-01-10 12:47] VITALS: BP 159/88
[2018-01-10] MEDS ORDERED: TORADOL ONE (13:00)
[2018-01-10] MEDS ORDERED: TORADOL IM ONE (13:00)
--- NOTE | 2018-01-10 13:05 | Emergency Department Report ---
ED Back Pain/Injury HPI - General Chief Complaint: Back Pain/Injury Stated Complaint: BACK PAIN Time Seen by Provider: 01/10/18 12:51 Source: EMS Limitations: No Limitations - History of Present Illness Initial Comments: This is a 67-year-old female nontoxic, well nourished in appearance, no acute signs of distress presents to the ED with c/o of acute on chronic lower back pain. Patient stated that she wake up this morning and had low back pain and increased throughoput the day. Patient stated had lumbar surgery 08/2017. Patient states has history of sciatica nerve pain which is similar symptoms as today. Patient states that pain radiates through to his left lower extremity. Patient denies any trauma. Denies any bladder or bowel instability. Denies any fever, chills, nausea, vomiting, headache, stiff neck, chest pain or shortness of breath. Patient denies any numbness or tingling. MD Complaint: back pain -: This morning Similar Symptoms Previously: Yes Place: home Radiation: left leg Severity: mild Severity scale (0 -10): 8 Quality: aching Consistency: intermittent Improves With: immobilization, supine, sitting upright Worsens With: movement, walking Associated Symptoms: denies other symptoms. denies: confusion, weakness, chest pain, numbness, difficulty walking, cough, difficulty urinating, diaphoresis, incontinence, fever/chills, constipation, headaches, abdominal pain, loss of appetite, nausea/vomiting, rash, seizure, shortness of breath, syncope - Related Data Home Medications Medication Instructions Recorded Confirmed Last Taken Carvedilol [Coreg] 25 mg PO BID 04/08/14 07/08/16 07/06/16 21:00 25 mg Lisinopril [Zestril TAB] 10 mg PO QDAY 04/08/14 07/08/16 07/07/16 21:00 10mg cloNIDine [Catapres] 0.2 mg PO QHS 04/08/14 07/08/16 07/07/16 21:00 0.2mg Zolpidem [Ambien] 10 mg PO QHS 05/06/16 07/08/16 07/07/16 21:00 Previous Rx's Medication Instructions Recorded Last Taken Type AtorvaSTATin [Lipitor] 20 mg PO QHS #30 tablet 05/08/16 07/06/16 21:00 Rx Ibuprofen [Motrin] 600 mg PO Q8H PRN #15 tablet 01/18/17 Unknown Rx Medical Supply, Miscellaneous 1 each MC CONT #1 each 01/18/17 Unknown Rx [[place]] Nitrofurantoin [place]/M-Cryst 100 mg PO Q12HR #14 capsule 01/18/17 Unknown Rx [Macrobid CAP] methOCARBAMOL [Robaxin TAB] 500 mg PO Q6H PRN #15 tablet 01/18/17 Unknown Rx Acetaminophen [Tylenol Arthritis] 650 mg PO Q6HR PRN #30 tablet.er 06/04/17 Unknown Rx Albuterol Sulfate [Proair 90 mcg IH Q4HR PRN #2 aer.pow.ba 06/04/17 Unknown Rx Respiclick] Benzonatate [Tessalon Perles] 100 mg PO Q8HR PRN #30 capsule 06/04/17 Unknown Rx Fluticasone [Flonase] 1 spray NS QDAY #1 bottle 06/04/17 Unknown Rx Ibuprofen [Motrin] 600 mg PO Q8H PRN #30 tablet 06/04/17 Unknown Rx Ondansetron [Zofran Odt] 4 mg PO QID PRN #20 tab.rapdis 06/04/17 Unknown Rx HYDROcodone/APAP 5-325 [[place] 1 - 2 each PO Q6HR PRN #14 tablet 06/27/17 Unknown Rx 5/325] Ibuprofen [Motrin 800 MG tab] 800 mg PO Q8HR PRN #20 tablet 06/27/17 Unknown Rx Sulfamethoxazole/Trimethoprim 1 each PO BID 10 Days #20 tablet 08/07/17 Unknown Rx [Bactrim DS TAB] diphenhydrAMINE [Benadryl CAP] 25 mg PO Q6HR PRN 5 Days #20 08/07/17 Unknown Rx capsule traMADol [Ultram] 50 mg PO Q6HR PRN 5 Days #20 tablet 08/07/17 Unknown Rx Nitrofurantoin [place]/M-Cryst 100 mg PO Q12HR #14 capsule 08/30/17 Unknown Rx [Macrobid CAP] Phenazopyridine [Pyridium] 100 mg PO TID #6 tab 08/30/17 Unknown Rx Cyclobenzaprine [Flexeril] 10 mg PO QHS PRN #7 tablet 01/10/18 Unknown Rx Ibuprofen [Motrin] 600 mg PO Q8H PRN #30 tablet 01/10/18 Unknown Rx Allergies Allergy/AdvReac Type Severity Reaction Status Date / Time amitriptyline Allergy Rash Verified 05/06/16 06:00 levofloxacin [From Levaquin] Allergy Rash Verified 05/06/16 05:58 tramadol HCl [From Ultram] Allergy heart race Verified 12/26/15 09:52 ED Review of Systems ROS: Stated complaint: BACK PAIN Other details as noted in HPI Constitutional: denies: chills, fever Eyes: denies: eye pain, eye discharge, vision change ENT: denies: ear pain, throat pain Respiratory: denies: cough, shortness of breath, wheezing Cardiovascular: denies: chest pain, palpitations Endocrine: no symptoms reported Gastrointestinal: denies: abdominal pain, nausea, diarrhea Genitourinary: denies: urgency, dysuria, discharge Musculoskeletal: back pain. denies: joint swelling, arthralgia Skin: denies: rash, lesions Neurological: denies: headache, weakness, paresthesias Psychiatric: denies: anxiety, depression Hematological/Lymphatic: denies: easy bleeding, easy bruising ED Past Medical Hx - Past Medical History Hx Hypertension: Yes Hx CVA: No Hx Heart Attack/AMI: No Hx Congestive Heart Failure: No Hx Diabetes: No Hx Deep Vein Thrombosis: No Hx Pulmonary Embolism: No Hx GERD: No Hx Liver Disease: No Hx Renal Disease: No Hx Sickle Cell Disease: No Hx Arthritis: No Hx Headaches / Migraines: No Hx Seizures: No Hx Kidney Stones: No Hx Psychiatric Treatment: Yes (depression) Hx Asthma: No Hx COPD: No Hx Tuberculosis: No Hx Dementia: No Hx HIV: No Additional medical history: stenosis of spine, back pain, neck pain - Surgical History Hx Coronary Stent: No Hx Open Heart Surgery: No Hx Pacemaker: No Hx Internal Defibrillator: No Hx Cholecystectomy: No Hx Appendectomy: No Hx Breast Surgery: No Additional Surgical History: neck-bulging disc. back fusion, hysterectomy - Social History Smoking Status: Unknown if ever smoked Substance Use Type: None - Medications Home Medications: Home Medications Medication Instructions Recorded Confirmed Last Taken Type Carvedilol [Coreg] 25 mg PO BID 04/08/14 07/08/16 07/06/16 21:00 History 25 mg Lisinopril [Zestril TAB] 10 mg PO QDAY 04/08/14 07/08/16 07/07/16 21:00 History 10mg cloNIDine [Catapres] 0.2 mg PO QHS 04/08/14 07/08/16 07/07/16 21:00 History 0.2mg Zolpidem [Ambien] 10 mg PO QHS 05/06/16 07/08/16 07/07/16 21:00 History AtorvaSTATin [Lipitor] 20 mg PO QHS #30 tablet 05/08/16 07/08/16 07/06/16 21:00 Rx Ibuprofen [Motrin] 600 mg PO Q8H PRN #15 tablet 01/18/17 Unknown Rx Medical Supply, Miscellaneous 1 each MC CONT #1 each 01/18/17 Unknown Rx [[place]] Nitrofurantoin [place]/M-Cryst 100 mg PO Q12HR #14 capsule 01/18/17 Unknown Rx [Macrobid CAP] methOCARBAMOL [Robaxin TAB] 500 mg PO Q6H PRN #15 tablet 01/18/17 Unknown Rx Acetaminophen [Tylenol Arthritis] 650 mg PO Q6HR PRN #30 tablet.er 06/04/17 Unknown Rx Albuterol Sulfate [Proair 90 mcg IH Q4HR PRN #2 aer.pow.ba 06/04/17 Unknown Rx Respiclick] Benzonatate [Tessalon Perles] 100 mg PO Q8HR PRN #30 capsule 06/04/17 Unknown Rx Fluticasone [Flonase] 1 spray NS QDAY #1 bottle 06/04/17 Unknown Rx Ibuprofen [Motrin] 600 mg PO Q8H PRN #30 tablet 06/04/17 Unknown Rx Ondansetron [Zofran Odt] 4 mg PO QID PRN #20 tab.rapdis 06/04/17 Unknown Rx HYDROcodone/APAP 5-325 [[place] 1 - 2 each PO Q6HR PRN #14 tablet 06/27/17 Unknown Rx 5/325] Ibuprofen [Motrin 800 MG tab] 800 mg PO Q8HR PRN #20 tablet 06/27/17 Unknown Rx Sulfamethoxazole/Trimethoprim 1 each PO BID 10 Days #20 tablet 08/07/17 Unknown Rx [Bactrim DS TAB] diphenhydrAMINE [Benadryl CAP] 25 mg PO Q6HR PRN 5 Days #20 08/07/17 Unknown Rx capsule traMADol [Ultram] 50 mg PO Q6HR PRN 5 Days #20 tablet 08/07/17 Unknown Rx Nitrofurantoin [place]/M-Cryst 100 mg PO Q12HR #14 capsule 08/30/17 Unknown Rx [Macrobid CAP] Phenazopyridine [Pyridium] 100 mg PO TID #6 tab 08/30/17 Unknown Rx Cyclobenzaprine [Flexeril] 10 mg PO QHS PRN #7 tablet 01/10/18 Unknown Rx Ibuprofen [Motrin] 600 mg PO Q8H PRN #30 tablet 01/10/18 Unknown Rx ED Physical Exam - General Limitations: No Limitations General appearance: alert, in no apparent distress - Head Head exam: Present: atraumatic, normocephalic - Eye Eye exam: Present: normal appearance Pupils: Present: normal accommodation - ENT ENT exam: Present: normal exam, mucous membranes moist - Neck Neck exam: Present: normal inspection, full ROM. Absent: tenderness, meningismus, lymphadenopathy - Respiratory Respiratory exam: Present: normal lung sounds bilaterally. Absent: respiratory distress, wheezes, rales, rhonchi, stridor - Cardiovascular Cardiovascular Exam: Present: regular rate, normal rhythm, normal heart sounds. Absent: bradycardia, tachycardia, irregular rhythm, systolic murmur, diastolic murmur, rubs, gallop - GI/Abdominal GI/Abdominal exam: Present: soft, normal bowel sounds. Absent: distended, tenderness, guarding, rebound, rigid, diminished bowel sounds - Rectal Rectal exam: Present: deferred - Extremities Exam Extremities exam: Present: normal inspection, full ROM, normal capillary refill - Back Exam Back exam: Present: normal inspection, full ROM, paraspinal tenderness (lumbar region). Absent: tenderness, CVA tenderness (R), CVA tenderness (L), muscle spasm, vertebral tenderness, rash noted - Expanded Back Exam Expanded Back exam: Absent: saddle anesthesia Back exam: Negative Straight Leg Raising: Left, Right - Neurological Exam Neurological exam: Present: alert, oriented X3, normal gait - Psychiatric Psychiatric exam: Present: normal affect, normal mood - Skin Skin exam: Present: warm, dry, intact, normal color. Absent: rash ED Course Vital Signs 01/10/18 12:44 Temperature 98.7 F Pulse Rate 85 Respiratory 18 Rate Blood Pressure 159/88 O2 Sat by Pulse 100 Oximetry - Reevaluation(s) Reevaluation #1: 01/10/18 13:05 Patient is speaking in full sentences with no signs of distress noted. ED Medical Decision Making - Medical Decision Making This is a 67-year-old female that presents with low back strain. Patient is stable was examined by me. There is no spinal tenderness. There is no cauda equina syndrome during examination. No bladder or bowel instability. Patient received Toradol 30 mg IM in the ED which preceded his symptoms has resolved and subsided. Patient is discharged with muscle relaxant and Motrin. Patient was instructed not to operate any machinery while taking muscle relaxant as they cause her drowsiness. Patient was referred to Follow-up with a primary care doctor in 3-5 days or if symptoms worsen and continue return to emergency room as soon as possible. At time of discharge, the patient does not seem toxic or ill in appearance. No acute signs of distress noted. Patient agrees to discharge treatment plan of care. No further questions noted by the patient. This chart is dictated with using [employer] Critical care attestation.: If time is entered above; I have spent that time in minutes in the direct care of this critically ill patient, excluding procedure time. ED Disposition Clinical Impression: Low back strain Qualifiers: Encounter type: initial encounter Qualified Code(s): S39.012A - Strain of muscle, fascia and tendon of lower back, initial encounter Disposition: - TO HOME OR SELFCARE Is pt being admited?: No Does the pt Need Aspirin: No Condition: Stable Instructions: Chronic Back Pain (ED), Cyclobenzaprine (By mouth), Ibuprofen ( By mouth) Additional Instructions: Follow-up with your primary care doctor in 3-5 days or if symptoms worsen such as bladder or bowel stability, chest pain, short of breath, numbness or tingling sensation in extremities, headache, dizziness, visual changes, nausea vomiting, or abdominal pain, return back to emergency room as was possible. Take ibuprofen and Flexeril as prescribed. Do not operate heavy machinery while taking Flexeril due to sedation Prescriptions: Cyclobenzaprine [Flexeril] 10 mg PO QHS PRN #7 tablet PRN Reason: Muscle Spasm Ibuprofen [Motrin] 600 mg PO Q8H PRN #30 tablet PRN Reason: Pain Referrals: PRIMARY CARE, [Referring] - 3-5 Days ELISA TILLEY MD [Staff Physician] - 3-5 Days [facility] [Outside] - 3-5 Days [facility] [Outside] - 3-5 Days Forms: Work/School Release Form(ED)
== END 2018-01-10 13:12 | disposition home or self-care (01) ==
LOC: ED 12:36
DX: S39.012A Strain of muscle, fascia and tendon of lower back, initial encounter (principal); I10 Essential (primary) hypertension; X58.XXXA Exposure to other specified factors, initial encounter; Y93.89 Activity, other specified; Y92.89 Other specified places as the place of occurrence of the external cause; Y99.8 Other external cause status
CPT/HCPCS: 96372; 99283; J1885